=== PATIENT | female | born 1975 | race Caucasian/White ===

== ENCOUNTER 2016-05-17 11:12 | Inpatient (IN) | payer OTHER ==
[~2016-05-17] VITALS: Ht 170.2 cm; Wt 108.9 kg
[~2016-05-17 11:12] MED LIST: ASPIR-LOW81 MG PO; ASPIRIN EC325 MG PO; COREG 12.5MG12.5 MG PO; LASIX40 MG PO; LIPITOR TAB 2020 MG PO; LISINOPRIL10 MG PO; NORCO 7.5-3251 EACH PO
[2016-05-17 15:41] LABS: HEMOGLOBIN 13.3 gm/dl (12.3-15.3); RED BLOOD COUNT 5.08 M/UL (4.00-5.10); WHITE BLOOD COUNT 15.2 K/UL (4.5-11.0)
[2016-05-17 16:02] LABS: BUN/CREATININE RATIO 17 (0-10)
[2016-05-18 08:48] LABS: HEMOGLOBIN 12.3 gm/dl (12.3-15.3); RED BLOOD COUNT 4.7 M/UL (4.00-5.10); WHITE BLOOD COUNT 12.5 K/UL (4.5-11.0)
[2016-05-18] MEDS ORDERED: PLAVIX 75 MG TA75 MG PO (13:58)
[2016-05-19 05:20] LABS: HEMOGLOBIN 11.3 gm/dl (12.3-15.3); RED BLOOD COUNT 4.38 M/UL (4.00-5.10); WHITE BLOOD COUNT 13.3 K/UL (4.5-11.0)
[2016-05-19 05:39] LABS: BUN/CREATININE RATIO 29 (0-10)
[2016-05-20 06:20] LABS: HEMOGLOBIN 12.3 gm/dl (12.3-15.3); RED BLOOD COUNT 4.77 M/UL (4.00-5.10); WHITE BLOOD COUNT 11.3 K/UL (4.5-11.0)
[2016-05-20 06:56] LABS: BUN/CREATININE RATIO 31 (0-10)
[2016-05-22] MEDS ORDERED: HABITROL 21 MG P1 EA TD (13:56)
[2016-05-22] MEDS ORDERED: MEDROL4 MG PO (13:56)
[2016-05-22] MEDS ORDERED: CEFDINIR300 MG PO (13:57)
[2016-05-22] MEDS ORDERED: PROVENTIL HFA 61 INH INH (13:57)
[2016-05-22] MEDS ORDERED: VENTOLIN/PROVE0.5 ML INH (13:59)
[2016-05-22] MEDS ORDERED: ROBITUSSIN DM473 ML PO (13:59)
[2016-12-06] MEDS ORDERED: VISTARIL50 MG PO (02:15)
[2016-12-06] MEDS ORDERED: ASPIRIN CHEWABL81 MG PO (02:16)
[2016-12-06] MEDS ORDERED: LIPITOR TAB 2020 MG PO (02:16)
[2016-12-06] MEDS ORDERED: LISINOPRIL20 MG PO (02:18)
[2016-12-06] MEDS ORDERED: COREG 12.5MG12.5 MG PO (02:18)
[2016-12-06] MEDS ORDERED: PLAVIX 75 MG TA75 MG PO (02:18)
[2016-12-06] MEDS ORDERED: BUMEX 1MG TABLET1 MG PO (02:18)
[2016-12-06] MEDS ORDERED: ALDACTONE25 MG PO (02:19)
[2016-12-06] MEDS ORDERED: LORTAB 7.5-3251 EACH PO (02:20)
[2016-12-10] MEDS ORDERED: FERROUS SULFAT325 M2 PO (18:01)
[2016-12-10] MEDS ORDERED: IMDUR ER TAB 3030 MG PO (18:02)
[2016-12-10] MEDS ORDERED: PREDNISONE20 MG PO (18:03)
== END 2016-05-22 17:55 | disposition home or self-care (01) | DRG 291 ==
LOC: ER1 11:12 → ZEROF 20:31 → M/S 05-18 16:04
PROVIDERS: Emergency Medicine; Hospitalist; Physician Assistant; ADMIT Internal Medicine
DX: I11.0 Hypertensive heart disease with heart failure (principal); J18.9 Pneumonia, unspecified organism; E87.2 Acidosis; J44.1 Chronic obstructive pulmonary disease with (acute) exacerbation; I50.23 Acute on chronic systolic (congestive) heart failure; I25.5 Ischemic cardiomyopathy; I16.0 Hypertensive urgency; I25.10 Atherosclerotic heart disease of native coronary artery without angina pectoris; E78.5 Hyperlipidemia, unspecified; D64.9 Anemia, unspecified; K43.2 Incisional hernia without obstruction or gangrene; M10.9 Gout, unspecified; F17.200 Nicotine dependence, unspecified, uncomplicated; Z76.5 Malingerer [conscious simulation]; I25.2 Old myocardial infarction; Z95.5 Presence of coronary angioplasty implant and graft; Z91.14 Patient's other noncompliance with medication regimen; Z86.73 Personal history of transient ischemic attack (TIA), and cerebral infarction without residual deficits; Z87.898 Personal history of other specified conditions; Z79.02 Long term (current) use of antithrombotics/antiplatelets; Z79.82 Long term (current) use of aspirin; Z79.891 Long term (current) use of opiate analgesic; Z79.899 Other long term (current) drug therapy; Z90.710 Acquired absence of both cervix and uterus; Z90.49 Acquired absence of other specified parts of digestive tract; Z98.890 Other specified postprocedural states; Z84.1 Family history of disorders of kidney and ureter; Z82.49 Family history of ischemic heart disease and other diseases of the circulatory system
CPT/HCPCS: 36415; 71010; 80048; 80053; 82550; 82553; 83605; 83874; 83880; 84484; 85025; 85027; 85610; 85730; 87040; 87278; 93005; 94640; 94664; 96365; 96375; 99291; J0456; J0696; J1650; J1940; J2930; J7030; J7050; Q9963

== ENCOUNTER 2016-07-18 20:47 | Inpatient (IN) | payer OTHER ==
[~2016-07-18] VITALS: Ht 172.7 cm; Wt 109.5 kg
[~2016-07-18 20:47] MED LIST changes: +CEFDINIR300 MG PO; +HABITROL 21 MG P1 EA TD; +MEDROL4 MG PO; +PLAVIX 75 MG TA75 MG PO; +PROVENTIL HFA 61 INH INH; +ROBITUSSIN DM473 ML PO; +VENTOLIN/PROVE0.5 ML INH
[2016-07-18 21:59] LABS: HEMOGLOBIN 11.3 gm/dl (12.3-15.3); RED BLOOD COUNT 4.59 M/UL (4.00-5.10); WHITE BLOOD COUNT 9.7 K/UL (4.5-11.0)
[2016-07-19 05:54] LABS: HEMOGLOBIN 10.5 gm/dl (12.3-15.3); RED BLOOD COUNT 4.33 M/UL (4.00-5.10); WHITE BLOOD COUNT 8.1 K/UL (4.5-11.0)
[2016-07-19 07:00] LABS: BUN/CREATININE RATIO 30 (0-10)
[2016-07-20 03:56] LABS: RED BLOOD COUNT 4.57 M/UL (4.00-5.10); WHITE BLOOD COUNT 7.1 K/UL (4.5-11.0)
[2016-07-24] MEDS ORDERED: SPIRONOLACTONE25 MG PO (13:41)
[2016-07-24] MEDS ORDERED: BUMEX 1MG TABLET1 MG PO (13:43)
[2016-12-06] MEDS ORDERED: VISTARIL50 MG PO (02:15)
[2016-12-06] MEDS ORDERED: LIPITOR TAB 2020 MG PO (02:16)
[2016-12-06] MEDS ORDERED: ASPIRIN CHEWABL81 MG PO (02:16)
[2016-12-06] MEDS ORDERED: COREG 12.5MG12.5 MG PO (02:18)
[2016-12-06] MEDS ORDERED: PLAVIX 75 MG TA75 MG PO (02:18)
[2016-12-06] MEDS ORDERED: LISINOPRIL20 MG PO (02:18)
[2016-12-06] MEDS ORDERED: BUMEX 1MG TABLET1 MG PO (02:18)
[2016-12-06] MEDS ORDERED: ALDACTONE25 MG PO (02:19)
[2016-12-06] MEDS ORDERED: LORTAB 7.5-3251 EACH PO (02:20)
[2016-12-10] MEDS ORDERED: FERROUS SULFAT325 M2 PO (18:01)
[2016-12-10] MEDS ORDERED: IMDUR ER TAB 3030 MG PO (18:02)
[2016-12-10] MEDS ORDERED: PREDNISONE20 MG PO (18:03)
== END 2016-07-24 17:22 | disposition home or self-care (01) | DRG 293 ==
LOC: ER1 20:47 → PROG CARE 22:50 → MED SURG 4 22:50 → ZEROF 22:50 → MED SURG 4 07-19 02:07 → PROG CARE 07-19 14:50 → MED SURG 4 07-23 16:15
PROVIDERS: Emergency Medicine; Internal Medicine; ADMIT Family Medicine
PROC: 4A02XM4 Measurement of Cardiac Total Activity, External Approach (ICD-10-PCS; principal; 2016-07-19)
PROC: 3E073KZ Introduction of Other Diagnostic Substance into Coronary Artery, Percutaneous Approach (ICD-10-PCS; principal; 2016-07-19)
DX: I11.0 Hypertensive heart disease with heart failure (principal); I50.43 Acute on chronic combined systolic (congestive) and diastolic (congestive) heart failure; I16.0 Hypertensive urgency; F17.210 Nicotine dependence, cigarettes, uncomplicated; E78.5 Hyperlipidemia, unspecified; I27.2 Other secondary pulmonary hypertension; Z95.5 Presence of coronary angioplasty implant and graft; I25.5 Ischemic cardiomyopathy; Z91.14 Patient's other noncompliance with medication regimen; F11.21 Opioid dependence, in remission; F12.21 Cannabis dependence, in remission; F15.21 Other stimulant dependence, in remission; I48.0 Paroxysmal atrial fibrillation; Z86.718 Personal history of other venous thrombosis and embolism; Z76.5 Malingerer [conscious simulation]; Z86.73 Personal history of transient ischemic attack (TIA), and cerebral infarction without residual deficits; I25.119 Atherosclerotic heart disease of native coronary artery with unspecified angina pectoris; Z90.49 Acquired absence of other specified parts of digestive tract; Z90.710 Acquired absence of both cervix and uterus; Z98.890 Other specified postprocedural states; Z88.6 Allergy status to analgesic agent; Z82.49 Family history of ischemic heart disease and other diseases of the circulatory system; Z84.1 Family history of disorders of kidney and ureter; M54.5 Low back pain; G89.29 Other chronic pain; E66.9 Obesity, unspecified; Z68.39 Body mass index [BMI] 39.0-39.9, adult; D64.9 Anemia, unspecified; Z87.01 Personal history of pneumonia (recurrent); Z79.899 Other long term (current) drug therapy; Z79.82 Long term (current) use of aspirin; Z79.02 Long term (current) use of antithrombotics/antiplatelets; R94.39 Abnormal result of other cardiovascular function study; R00.1 Bradycardia, unspecified; I95.2 Hypotension due to drugs; I25.2 Old myocardial infarction; I34.0 Nonrheumatic mitral (valve) insufficiency
CPT/HCPCS: ECHO; 36415; 71020; 78452; 80048; 80053; 80061; 82550; 82553; 83036; 83735; 83880; 84484; 85025; 85027; 85610; 85730; 93005; 93017; 93306; 94664; 96374; 99285; A9502; J0360; J1644; J1650; J1940; J2270; J2785; J7050

== ENCOUNTER 2016-09-01 23:11 | Observation (INO) | payer OTHER ==
[~2016-09-01] VITALS: Ht 170.2 cm; Wt 115.7 kg
[~2016-09-01 23:11] MED LIST changes: +BUMEX 1MG TABLET1 MG PO; +SPIRONOLACTONE25 MG PO
[2016-09-02 01:50] LABS: HEMOGLOBIN 14.6 gm/dl (12.3-15.3); RED BLOOD COUNT 5.89 M/UL (4.00-5.10); WHITE BLOOD COUNT 9.8 K/UL (4.5-11.0)
[2016-09-03] MEDS ORDERED: IMDUR ER TAB 3030 MG PO (15:19)
[2016-09-03] MEDS ORDERED: TOPROL XL25 MG PO (15:45)
[2016-12-06] MEDS ORDERED: VISTARIL50 MG PO (02:15)
[2016-12-06] MEDS ORDERED: ASPIRIN CHEWABL81 MG PO (02:16)
[2016-12-06] MEDS ORDERED: LIPITOR TAB 2020 MG PO (02:16)
[2016-12-06] MEDS ORDERED: LISINOPRIL20 MG PO (02:18)
[2016-12-06] MEDS ORDERED: COREG 12.5MG12.5 MG PO (02:18)
[2016-12-06] MEDS ORDERED: BUMEX 1MG TABLET1 MG PO (02:18)
[2016-12-06] MEDS ORDERED: PLAVIX 75 MG TA75 MG PO (02:18)
[2016-12-06] MEDS ORDERED: ALDACTONE25 MG PO (02:19)
[2016-12-06] MEDS ORDERED: LORTAB 7.5-3251 EACH PO (02:20)
[2016-12-10] MEDS ORDERED: FERROUS SULFAT325 M2 PO (18:01)
[2016-12-10] MEDS ORDERED: IMDUR ER TAB 3030 MG PO (18:02)
[2016-12-10] MEDS ORDERED: PREDNISONE20 MG PO (18:03)
== END 2016-09-03 16:27 | disposition home or self-care (01) ==
LOC: ER1 23:11 → M/S 09-02 02:26 → ZEROF 09-02 02:26 → M/S 09-02 07:42
PROVIDERS: Emergency Medicine; Nurse Practitioner; ADMIT Internal Medicine
DX: R07.9 Chest pain, unspecified (principal); I25.10 Atherosclerotic heart disease of native coronary artery without angina pectoris; I48.0 Paroxysmal atrial fibrillation; I25.5 Ischemic cardiomyopathy; I25.2 Old myocardial infarction; I13.0 Hypertensive heart and chronic kidney disease with heart failure and stage 1 through stage 4 chronic kidney disease, or unspecified chronic kidney disease; N18.9 Chronic kidney disease, unspecified; I50.20 Unspecified systolic (congestive) heart failure; J44.9 Chronic obstructive pulmonary disease, unspecified; E78.5 Hyperlipidemia, unspecified; Z86.73 Personal history of transient ischemic attack (TIA), and cerebral infarction without residual deficits; Z87.891 Personal history of nicotine dependence; Z87.898 Personal history of other specified conditions; Z79.02 Long term (current) use of antithrombotics/antiplatelets; Z79.82 Long term (current) use of aspirin; Z79.899 Other long term (current) drug therapy
CPT/HCPCS: 36415; 71010; 80048; 80053; 82550; 82553; 83874; 84484; 85025; 93005; 94664; 99291; G0378

== ENCOUNTER 2016-11-22 22:11 | Emergency (ER) | payer OTHER ==
[~2016-11-22 22:11] MED LIST changes: +IMDUR ER TAB 3030 MG PO; +TOPROL XL25 MG PO
[2016-11-22 22:45] LABS: HEMOGLOBIN 12.7 gm/dl (12.3-15.3); RED BLOOD COUNT 4.73 M/UL (4.00-5.10); WHITE BLOOD COUNT 9.2 K/UL (4.5-11.0)
[2016-11-22 23:03] LABS: BUN/CREATININE RATIO 30 (0-10)
== END 2016-11-23 01:00 | disposition home or self-care (01) ==
LOC: ER1 22:11
PROVIDERS: Emergency Medicine
DX: J20.9 Acute bronchitis, unspecified (principal); I21.3 ST elevation (STEMI) myocardial infarction of unspecified site; I50.9 Heart failure, unspecified; I25.10 Atherosclerotic heart disease of native coronary artery without angina pectoris; F17.210 Nicotine dependence, cigarettes, uncomplicated; Z95.5 Presence of coronary angioplasty implant and graft; Z79.82 Long term (current) use of aspirin; Z79.01 Long term (current) use of anticoagulants; Z79.899 Other long term (current) drug therapy
CPT/HCPCS: 71010; 80053; 80307; 81001; 82550; 82553; 83874; 83880; 84484; 85025; 93005; 94640; 94664; 99285; J0696; J1885; J1940; J2270; J2405; J2930